=== PATIENT | male | born 1985 | race Caucasian/White ===

== ENCOUNTER 2022-07-08 00:04 | Emergency (ER) | payer OTHER ==
[2022-07-08 00:11] VITALS: BP 140/77
--- NOTE | 2022-07-08 00:56 | ED Physician Documentation ---
PD HPI CHEST PAIN - Stated complaint Stated Complaint: VOMITING - Chief complaint Chief Complaint: Abd Pain - History obtained from History obtained from: Patient - Additional information Additional information: 36-year-old man, previously healthy presents with an isolated episode of hemoptysis tonight lasting about 30 minutes with sudden onset wheezing and coughing up blood. Patient states that he had 4 beers and some sangria today and is a "heavy drinker". reports he had an episode like this 8 years ago and was screened for PE. no prior hx blood clots. denies medication use or hormone use. denies recent surgery, cancer history, uneven leg swelling. does get some pains in his right calf on occasion. Review of Systems Constitutional: denies: Fever Throat: denies: Sore throat Cardiac: denies: Chest pain / pressure Respiratory: reports: Cough, Hemoptysis PD PAST MEDICAL HISTORY - Allergies Allergies/Adverse Reactions: Allergies Allergy/AdvReac Type Severity Reaction Status Date / Time No Known Drug Allergies Allergy Verified 07/08/22 00:08 PD ED PE NORMAL - Vitals Vital signs reviewed: Yes - General General: Alert and oriented X 3, No acute distress, Well developed/nourished - HEENT HEENT: Atraumatic, PERRL, EOMI, Moist mucous membranes, Pharynx benign - Neck Neck: Supple, no meningeal sign - Respiratory Respiratory: No respiratory distress, Clear bilaterally Results - Vitals Vitals: Vital Signs - 24 hr 07/08/22 00:08 Temperature 36.5 C Heart Rate 100 Respiratory 16 Rate Blood Pressure 140/77 H O2 Saturation 100 Oxygen O2 Source Room air - Labs Labs: Laboratory Tests 07/08/22 07/08/22 07/08/22 00:50 00:50 00:50 WBC 7.1 RBC 5.08 Hgb 15.3 Hct 46.2 MCV 90.9 MCH 30.1 MCHC 33.1 RDW 12.7 Plt Count 276 MPV 8.9 Neut # (Auto) 3.7 Lymph # (Auto) 2.6 [place] # (Auto) 0.7 Eos # (Auto) 0.1 Baso # (Auto) 0.0 Absolute Nucleated RBC 0.00 Nucleated RBC % 0.0 D-Dimer < 200.0 L Sodium 140 Potassium 4.0 Chloride 104 Carbon Dioxide 26 Anion Gap 10.0 BUN 11 Creatinine 0.8 Estimated GFR (MDRD) 110 Glucose 115 H Calcium 9.0 Total Bilirubin 0.5 AST 30 ALT 60 Alkaline Phosphatase 49 Total Protein 8.2 Albumin 4.3 Globulin 3.9 Albumin/Globulin Ratio 1.1 Lipase 29 PD Medical Decision Making - ED course ED course: 36-year-old male presents with hemoptysis. cbc, abdominal panel, d dimer and chest x-ray were normal. Plan to discharge home. Return precautions given. Departure - Departure Disposition: Home, Self Care Clinical Impression: Hemoptysis Condition: Good Instructions: ED Hemoptysis Comments: You were seen in the emergency department for coughing of blood. Your chest x- ray and lab work was normal. Please follow-up with your primary care provider. Return to the emergency department for new or worsening symptoms or other concerns.
[2022-07-08 01:04] LABS: BASOPHILS % (AUTO) 0.3 %; EOSINOPHILS # (AUTO) 0.1 10^3/uL (0.0-0.7); EOSINOPHILS % (AUTO) 1.7 %; HCT - HEMATOCRIT 46.2 % (42.0-52.0); HGB - HEMOGLOBIN 15.3 g/dL (14.0-18.0); LYMPHOCYTES # (AUTO) 2.6 10^3/uL (1.5-3.5); LYMPHOCYTES % (AUTO) 36.2 %; MEAN CORPUSCULAR HEMOGLOBIN 30.1 pg (27.0-31.0); MEAN CORPUSCULAR HGB CONC 33.1 g/dL (32.0-36.0); MEAN CORPUSCULAR VOLUME 90.9 fL (80.0-94.0); MEAN PLATELET VOLUME 8.9 fL (7.4-11.4); MONOCYTES # (AUTO) 0.7 10^3/uL (0.0-1.0); MONOCYTES % (AUTO) 9.8 %; NEUTROPHILS # (AUTO) 3.7 10^3/uL (1.5-6.6); NEUTROPHILS % (AUTO) 51.9 %; PLT - PLATELET COUNT 276 10^3/uL (130-450); RED BLOOD COUNT 5.08 10^6/uL (4.70-6.10); RED CELL DISTRIBUTION WIDTH 12.7 % (12.0-15.0); WHITE BLOOD COUNT 7.1 x10^3/uL (4.8-10.8)
[2022-07-08 01:17] LABS: ALBUMIN 4.3 g/dL (3.2-5.5); ALBUMIN/GLOBULIN RATIO 1.1 (1.0-2.2); BILIRUBIN,TOTAL 0.5 mg/dL (0.2-1.0); CREATININE 0.8 mg/dL (0.6-1.2); TOTAL PROTEIN 8.2 g/dL (6.7-8.2)
--- NOTE | 2022-07-08 01:58 | XRAY Report ---
PROCEDURE: Chest 1 View X-Ray INDICATIONS: Chest Pain TECHNIQUE: One view of the chest was acquired. COMPARISON: None. FINDINGS: Surgical changes and devices: None. Lungs and pleura: No pleural effusions or pneumothorax. Lungs are clear. Mediastinum: Mediastinal contours appear normal. Heart size is normal. Bones and chest wall: No suspicious bony lesions. Overlying soft tissues appear unremarkable. IMPRESSION: 1. No acute cardiopulmonary disease. Reviewed by: Chris De Leon MD on 07/08/2022 1:57 AM PDT Approved by: Chris De Leon MD on 07/08/2022 1:57 AM PDT Station ID: [id number]
== END 2022-07-08 01:55 | disposition home or self-care (01) ==
LOC: ED 00:04
DX: R04.2 Hemoptysis (principal)
CPT/HCPCS: 36415; 80053; 83690; 85025; 85379; 99283; 99284